=== PATIENT | female | born 1940 | race Caucasian/White ===

== ENCOUNTER 2017-03-07 19:25 | Emergency (ER) | payer OTHER, BC ==
[~2017-03-07] VITALS: Ht 170.2 cm; Wt 65.9 kg
[~2017-03-07 19:25] MED LIST: ASPIR-TRIN325 M1 PO; CELEBREX200 MG PO; FEOSOL325 MG PO; SENOKOT S,PE1 TABLET PO; ULTRAM50 MG PO; Vicodin,Lortab 5/500 PO
[2017-03-07] MEDS ORDERED: KEFLEX500 MG PO (22:52)
[2017-03-07 23:13] VITALS: BP 00/0
== END 2017-03-07 23:15 | disposition home or self-care (01) ==
LOC: EME 19:25
DX: S01.512A Laceration without foreign body of oral cavity, initial encounter (principal); W18.30XA Fall on same level, unspecified, initial encounter; Y92.002 Bathroom of unspecified non-institutional (private) residence as the place of occurrence of the external cause; Z96.653 Presence of artificial knee joint, bilateral; Z88.0 Allergy status to penicillin; Z87.891 Personal history of nicotine dependence
CPT/HCPCS: 99281; 99284